=== PATIENT | male | born 2000 | race Caucasian/White ===

== ENCOUNTER 2024-06-29 13:09 | Emergency (ER) | payer SELFPAY ==
[~2024-06-29] VITALS: Ht 177.8 cm; Wt 100.0 kg
[2024-06-29 14:00] VITALS: TEMP 98.6
[2024-06-29] MEDS ORDERED: ESCI-8 PO (14:12)
[2024-06-29] MEDS ORDERED: RISP-31 PO (14:12)
[2024-06-29 15:30] VITALS: BP 126/71; PULSE 79; RESP 17; O2SAT 98
== END 2024-06-29 16:36 | disposition home or self-care (01) ==
LOC: EMS 13:09
DX: S93.402A Sprain of unspecified ligament of left ankle, initial encounter (principal); F84.0 Autistic disorder; Y08.89XA Assault by other specified means, initial encounter; Y93.89 Activity, other specified; Y92.89 Other specified places as the place of occurrence of the external cause; Y99.8 Other external cause status
CPT/HCPCS: 94640; 99283